=== PATIENT | male | born 1950 | race Caucasian/White ===

== ENCOUNTER → 2017-05-01 | Day surgery (SDC) | payer BC ==
[2017-04-16 08:41] VITALS: Ht 193 cm; Wt 81.8 kg
[~2017-05-01] VITALS: Ht 193 cm; Wt 81.8 kg
[~2017-05-01] MED LIST: CALC600T9 PO; IODI1TAB PO; LIDOCAINE HCL 2% 2 ML VIAL (20MG/ML) ONE; MAGN250T22 PO; MIDAZOLAM HCL 1 MG/ML 2ML VIAL ONE; ONDANSETRON INJ 2 MG/ML 2 ML VIAL ONE; POTA99TA PO; PROPOFOL IV EMULSION 10 MG/ML 20 ML VIAL IV ONE
--- NOTE | 2017-05-01 08:48 | Endo History and Physical ---
History & Physical Date of Service: May 01, 2017. Chief Complaint: screening Referring Physician: Dr. Jax Najera History of Present Illness 66 yo CM who presents for screening colonoscopy. Past Surgical History Hx Cardiac Surgery: No Hx Internal Defibrillator: No Hx Pacemaker: No Hx Abdominal Surgery: No Hx of Implantable Prosthesis: No Hx Post-Op Nausea and Vomiting: No Hx Cancer Surgery: No Hx Thoracic Surgery: No Hx Orthopedic: Yes (RT KNEE ARTHROSCOPY) Hx Urinary Tract Surgery: No Family History Polyp Social History Smoking Status: Never Smoker Hx Substance Use: No Hx Alcohol Use: Yes (3-4 DRINKS/WEEK) Allergies Coded Allergies: No Known Allergies (Verified , 05/01/17) Current Medications Reported Home Medications Medications Dose Route/Sig Max Daily Dose Days Date Category Magnesium (Magnesium Oxide) 250 Mg Tab 1 Tab PO DAILY 04/16/17 Reported Potassium 99 Mg Tab 1 Tab PO DAILY 04/16/17 Reported Kelp (Iodine (Kelp)) 150 Mcg Tab 1 Tab PO DAILY 04/16/17 Reported Calcium + D (Calcium Carbonate-Vitamin D) 1 Tab Tab 1 Tab PO DAILY 04/16/17 Reported Vital Signs Weight (Kilograms): 81.82 Height (Feet): 6 Height (Inches): 4 Date Time Temp Pulse Resp B/P (MAP) Pulse Ox O2 Delivery O2 Flow Rate FiO2 05/01/17 08:19 36.5 53 18 128/71 (90) 98 Room Air Physical Exam General Appearance: WD/WN, no apparent distress Respiratory/Chest: Auscultation: breath sounds normal Cardiovascular: Heart Auscultation: RRR Abdomen: Bowel Sounds: normal Inspection & Palpation: soft, non-distended, no tenderness, guarding & rebound Assessment and Plan Assessment: 66 yo CM who presents for screening colonoscopy. Plan: Proceed with colonoscopy.
--- NOTE | 2017-05-01 09:09 | Discharge Instructions ---
Endoscopy Patient Instructions Date / Procedure(s) Performed May 01, 2017. Colonoscopy Allergy Information Coded Allergies: No Known Allergies (Verified , 05/01/17) Discharge Date / Findings May 01, 2017. Internal hemorrhoids Medication Instructions OK to resume all medications today as prescribed Reported Home Medications Medications Dose Route/Sig Max Daily Dose Days Date Category Magnesium (Magnesium Oxide) 250 Mg Tab 1 Tab PO DAILY 04/16/17 Reported Potassium 99 Mg Tab 1 Tab PO DAILY 04/16/17 Reported Kelp (Iodine (Kelp)) 150 Mcg Tab 1 Tab PO DAILY 04/16/17 Reported Calcium + D (Calcium Carbonate-Vitamin D) 1 Tab Tab 1 Tab PO DAILY 04/16/17 Reported Provider Instructions Activity Restrictions - No exercising or heavy lifting for 24 hours. - Do not drink alcohol the day of the procedure. - Do not drive a car or operate machinery until the day after the procedure. - Do not make any important decisions or sign important papers in 24 hours after the procedure. Following Day: - Return to full activity which may include returning to work/school. Diet Start your diet with liquids and light foods (jello, soup, juice, toast). Then eat your usual diet if not nauseated. Treatment For Common After Affects For mild abdominal pain, bloating, or excessive gas: - Rest - Eat lightly - Lie on right side Follow-Up Information Follow-up with Dr. Jax Najera as scheduled Anesthesia Information What You Should Know You have had a procedure that required some medicine to reduce anxiety and discomfort. This treatment is called moderate sedation. After receiving the treatment, you may be sleepy, but you will be able to breathe on your own. The effects of the treatment may last for several hours. Follow these instructions along with Activity/Diet recommendations noted above: * Do NOT do anything where dizziness or clumsiness would be dangerous. * Rest quietly at home today, then you can be up and about tomorrow. * Have a responsible person stay with you the rest of today. * You may have had an I.V. today. If so, you may take the dressing off later today. Recommendations Call your doctor if: * Trouble breathing * Continuous vomiting for more than 24 hours * Temperature above 101 degrees * Severe abdominal pain or bloating * Pain not relieved by pain medicine ordered * There is increased drainage or redness from any incision * A large amount of rectal bleeding greater than 2-3 tablespoons. (If you had a polyp/s removed or have hemorrhoids, a small amount of blood - from the rectum is to be expected.) * You have any unanswered questions or concerns. IN THE EVENT OF A SERIOUS EMERGENCY, GO TO THE NEAREST EMERGENCY ROOM Your discharge instructions were prepared by provider Rodrigo Hutchison. Patient Instructions Signature Page Balbir Krause Patient (or Guardian) Signature/Date: I have read and understand the instructions given to me by my caregivers. Caregiver/RN/Doctor Signature/Date: The above-named patient and/or guardian has received patient instructions on this date. + Original Patient Signature Page (only) stays with chart. Please make copy for patient.
--- NOTE | 2017-05-01 09:19 | GI REPORT ---
Procedure Date: 05/01/2017 8:39 AM Procedure: Colonoscopy Indications: Screening for colorectal malignant neoplasm Medicines: Monitored Anesthesia Care Complications: No immediate complications. Estimated Blood Loss: Estimated blood loss: none. Procedure: Pre-Anesthesia Assessment: - Prior to the procedure, a History and Physical was performed, and patient medications and allergies were reviewed. The patient's tolerance of previous anesthesia was also reviewed. The risks and benefits of the procedure and the sedation options and risks were discussed with the patient. All questions were answered, and informed consent was obtained. Prior Anticoagulants: The patient has taken no previous anticoagulant or antiplatelet agents. ASA Grade Assessment: I - A normal, healthy patient. After reviewing the risks and benefits, the patient was deemed in satisfactory condition to undergo the procedure. After I obtained informed consent, the scope was passed under direct vision. Throughout the procedure, the patient's blood pressure, pulse, and oxygen saturations were monitored continuously. The Scope was introduced through the anus and advanced to the terminal ileum. The colonoscopy was performed without difficulty. The patient tolerated the procedure well. The quality of the bowel preparation was good. The terminal ileum, ileocecal valve, appendiceal orifice, and rectum were photographed. Findings: The perianal and digital rectal examinations were normal. Non-bleeding internal hemorrhoids were found during retroflexion. The hemorrhoids were small. The exam was otherwise without abnormality. Impression: - Non-bleeding internal hemorrhoids. - The examination was otherwise normal. - No specimens collected. Recommendation: - Resume previous diet. - Continue present medications. - Repeat colonoscopy in 10 years for surveillance. - Return to primary care physician as previously scheduled. Rodrigo Hutchison, 05/01/2017 9:18:51 AM This report has been signed electronically. Note Initiated On: 05/01/2017 8:39 AM I attest to the content of the Intraoperative Record and orders documented therein, exceptions below
[2017-05-01 10:15] VITALS: BP 117/78; PULSE 54; O2SAT 96
--- NOTE | 2017-05-01 10:48 | Anesthesiology Progress Note ---
Anesthesia Post Op Note Date & Time May 01, 2017 at 10:48 Vital Signs Pain Intensity: 0 Vital Signs Past 12 Hours Date Time Temp Pulse Resp B/P (MAP) Pulse Ox O2 Delivery O2 Flow Rate FiO2 05/01/17 10:15 54 18 117/78 (91) 96 Room Air 05/01/17 09:50 47 18 114/71 (85) 100 Room Air 05/01/17 09:35 52 18 100/57 (71) 98 Room Air 05/01/17 09:20 52 16 83/55 (64) 100 Room Air 05/01/17 09:10 52 16 94/55 (68) 100 Room Air 05/01/17 08:19 36.5 53 18 128/71 (90) 98 Room Air Notes Mental Status: alert / awake / arousable, participated in evaluation Pt Amnestic to Procedure: Yes Nausea / Vomiting: adequately controlled Pain: adequately controlled Airway Patency, RR, SpO2: stable & adequate BP & HR: stable & adequate Hydration State: stable & adequate Anesthetic Complications: no major complications apparent
== END | disposition home or self-care (01) ==
LOC: C.GI 07:54
PROVIDERS: ATTEND Internal Medicine
DX: Z12.11 Encounter for screening for malignant neoplasm of colon (principal); K64.8 Other hemorrhoids; Z83.71 Family history of colonic polyps; Z98.890 Other specified postprocedural states; Z90.89 Acquired absence of other organs

== ENCOUNTER 2021-12-06 21:43 | Inpatient (IN) ==
[2021-12-06 22:19] LABS: Basophils # (auto) 0.06 K/uL (0-0.2); Basophils % (auto) 0.7 %; Eosinophils # (auto) 0.11 K/uL (0-0.50); Eosinophils % (auto) 1.4 %; Hematocrit (blood only) 42.1 % (40.1-51.0); Hemoglobin 14.4 g/dl (14.0-18.0); Immature Granulocytes # (auto) 0.02 K/uL (0.00-0.02); Immature Granulocytes % (auto) 0.2 %; Lymphocytes % (auto) 38.2 %; Mean Corpuscular Hemoglobin 31.1 pg (25.0-34.0); Mean Corpuscular Hgb Conc 34.2 g/dL (32.0-36.0); Mean Corpuscular Volume 90.9 fL (80.0-100.0); Mean Platelet Volume 9.9 fL (9.4-12.4); Monocytes # (auto) 0.79 K/uL (0.24-0.82); Monocytes % (auto) 9.7 %; Neutrophils # (auto) 4.04 K/uL (1.4-6.5); Neutrophils % (auto) 49.8 %; Platelet Count 218 K/uL (130-400); RDW Coefficient of Variation 12.6 % (11.5-14.5); RDW Standard Deviation 41.8 fL (36.4-46.3); Red Blood Count 4.63 M/uL (4.63-6.08); White Blood Count 8.12 K/ul (4.8-10.8)
[2021-12-06 22:43] LABS: Albumin Globulin Ratio 1.6 (0.9-2); Albumin Level 3.9 gm/dl (3.4-5.0); BUN Creatinine Ratio 28.8 (10-20); Bilirubin,Total 1.1 mg/dl (0.2-1.0); Est GFR (African American) 77.6 ml/min; Est GFR (Non-African American) 66.9 ml/min; Globulin 2.5 gm/dl (2.5-4.0); Potassium 3.8 mmol/L (3.5-5.1); Total Protein 6.4 gm/dl (6.0-8.3)
[2021-12-06 22:47] LABS: Troponin I High Sensitivity 26.9 pg/ml (0-20)
--- NOTE | 2021-12-06 22:47 | XRay Report ---
XR chest 1V portable CLINICAL HISTORY: Chest Pain TECHNIQUE: Single frontal radiograph of the chest was obtained. Comparison: None available at the time of this dictation. FINDINGS: No lines and tubes are seen. The cardiomediastinal silhouette is normal. The lungs are clear. No evid ence of pleural effusion or pneumothorax. IMPRESSION: No acute chest disease. ACT 112: Negative or not required by law. Electronically signed by: Cameron Hyman M.D. 12/06/2021 10:44 PM
[2021-12-06] MEDS ORDERED: ASPIRIN CHEW 324 MG PO STA (23:04)
--- NOTE | 2021-12-06 23:08 | Emergency Department Note ---
History of Present Illness General Chief complaint: Tachycardia Stated complaint: ELEVATED HEART RATE Time Seen by Provider: 12/06/21 22:49 History of Present Illness 71-year-old male presents emergency department states palpitations that started earlier today when he was golfing. Patient states he felt slightly dizzy felt like he was dehydrated. Patient does admit to alcohol in the past few days. Patient denies nausea vomiting diarrhea. Patient denies chest pain or shortness of breath. Patient has no significant medical history. There are no other mitigating or alleviating factors Home Medications Medication Instructions Recorded Confirmed Type calcium carbonate 500 mg calcium 500 mg PO DAILY tab 03/22/19 12/06/21 History (1,250 mg) tablet cholecalciferol (vitamin D3) 50 2,000 units PO DAILY #90 tab 03/22/19 12/06/21 History mcg (2,000 unit) tablet magnesium oxide 400 mg (241.3 mg 400 mg PO DAILY #30 tab 03/22/19 12/06/21 History magnesium) tablet potassium gluconate 595 mg (99 mg) 595 mg PO DAILY 03/06/20 12/06/21 History tablet [id number] 5 mg-zeaxanth 1 cap PO DAILY 12/06/21 12/06/21 History 1 mg-bilberry 7.5 mg-herbal capsule ([employer] Health Formula) Allergies Allergy/AdvReac Type Severity Reaction Status Date / Time No Known Drug Allergies Allergy Unknown Verified 12/06/21 22:41 Past Med/Surg History Medical History (Updated 12/06/21 @ 23:08 by Baljinder Hnederson DO) Enlarged prostate without lower urinary tract symptoms (luts) Gilbert's syndrome Internal hemorrhoids Surgical History H/O arthroscopy of right knee H/O colonoscopy Hx of tonsillectomy Family History Father Diabetes Hypertension Myocardial infarction Brother Diabetes Denies family history of Colon cancer Ovarian cancer Prostate cancer Breast cancer Social History Smoking Status: Never smoker Second Hand Exposure: No; Hx Alcohol Use: Yes (1 drink daily ) Hx Substance Use: No Preferred Language: Welsh Visual Impairment: No Limitations Hearing Ability: Use of Hearing Aid Beliefs That Will Affect Care: None marital status: Current Living Situation: Spouse current occupational status: retired 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 Feels Safe at Home: Yes Childhood Exposure to Second-Hand Smoke: Yes Dental Care, Regularly: Yes Physical Activity Frequency: Daily Seatbelt Use: always Sunscreen Use: Yes Review of Systems A total of 10 systems reviewed and were otherwise negative Constitutional: no fever Respiratory: no cough Cardiovascular: + palpitations; no chest pain Gastrointestinal: no abdominal pain Physical Exam Vital Signs Vital Signs - 24 hr 12/06/21 21:47 12/06/21 22:12 12/06/21 22:13 Temperature 36.7 C Temperature Source Temporal Artery Scan Pulse Rate 132 H Pulse Rate [Apical] 127 H Pulse Rhythm Regular Pulse Rhythm [Apical] Regular Pulse Strength Normal Respiratory Rate 16 16 Respiratory Effort / Characteristics Non-Labored Non-Labored Respiratory Depth Normal Normal Respiratory Pattern Regular Blood Pressure 131/85 Blood Pressure [Right Arm] 128/102 H Blood Pressure Mean 100 Blood Pressure Mean [Right Arm] 110 Blood Pressure Position Sitting Pulse Oximetry 97 97 96 Oxygen Delivery Method Room Air Room Air Room Air Sepsis Recent Fever Within 48 Hours No Sepsis New/Unexplained Change in Mental Status N/A Sepsis Action Taken by Nursing No Action Required VITAL SIGNS - Vital signs and nursing notes were reviewed. GENERAL -No acute distress. Communicates well with provider and answers questions appropriately. SKIN - Without rashes. HEAD - NC/AT. EYES - PERRL with EOMI bilaterally. Sclera anicteric. Palpebral conjunctiva pink and moist with no injection noted. EARS - No deformities of external structures noted on gross examination bilaterally. NOSE - Midline and without cyanosis. No epistaxis or purulent drainage noted. Septum midline without deviation or septal hematoma noted. MOUTH/OROPHARYNX - Without perioral cyanosis. NECK - Neck with FROM. Supple to palpation. LUNGS - Chest wall symmetric without accessory muscle use, intercostals retractions, or central cyanosis. Normal vesicular breath sounds CTA B/L. No wheezes, rales, or rhonchi appreciated. CARDIAC -irregularly irregular with S1/S2. No murmur, rubs, or gallops appreciated. ABDOMEN - Abdominal contour soft without pulsations or visible masses. BS normoactive all four quadrants. No tenderness, palpable masses, hepatosplenomegaly, or ascites noted. EXTREMITIES - No clubbing or peripheral cyanosis. No pretibial edema present. +5/5 strength noted in UE/LE bilaterally. NEUROLOGIC - Cranial nerves II through XII grossly intact. PSYCH - A&Ox3 and cooperates fully with examiner. Pt is very pleasant and interacts well with examiner. Course Administered Medications Discontinued Medications Aspirin (Aspirin Chew 324 Mg) 324 mg PO NOW STA Stop: 12/06/21 23:05 Last Admin: 12/06/21 23:14 Dose: 324 mg Documented by: [id number] Critical Care Time Critical Care Time: Yes Total Critical Care Time: 35 I have personally spent greater than 35 minutes of critical care time in the direct management of this patient. This includes bedside care, interpretation of diagnostic studies, and testing, discussion with consultants, patient, and family members, and other required patient management activities. These minutes are in excess of all separately billable procedures. Medical Decision Making Home Medications Current Medication List: was personally reviewed by me Laboratory Data Attestation: I reviewed the patient's lab results. Result diagrams: 12/06/21 22:00 12/06/21 22:00 Lab Results 12/06/21 12/06/21 12/06/21 Range/Units 22:00 22:00 22:00 WBC 8.12 (4.8-10.8) K/ul RBC 4.63 (4.63-6.08) M/uL Hgb 14.4 (14.0-18.0) g/dl Hct 42.1 (40.1-51.0) % MCV 90.9 (80.0-100.0) fL MCH 31.1 (25.0-34.0) pg MCHC 34.2 (32.0-36.0) g/dL RDW Std Deviation 41.8 (36.4-46.3) fL RDW Coeff of Rachel 12.6 (11.5-14.5) % Plt Count 218 (130-400) K/uL MPV 9.9 (9.4-12.4) fL Immature Gran % (Auto) 0.2 % Neut % (Auto) 49.8 % Lymph % (Auto) 38.2 % [place] % (Auto) 9.7 % Eos % (Auto) 1.4 % Baso % (Auto) 0.7 % Neut # (Auto) 4.04 (1.4-6.5) K/uL Lymph # (Auto) 3.10 (1.2-3.4) K/uL [place] # (Auto) 0.79 (0.24-0.82) K/uL Eos # (Auto) 0.11 (0-0.50) K/uL Baso # (Auto) 0.06 (0-0.2) K/uL Immature Gran # (Auto) 0.02 (0.00-0.02) K/uL PT 10.6 (9.0-12.0) Seconds INR 1.0 (0.9-1.1) APTT 27.5 (21.0-31.0) Seconds PTT Ratio 1.0 Sodium 137 (136-145) mmol/L Potassium 3.8 (3.5-5.1) mmol/L Chloride 106 (98-107) mmol/L Carbon Dioxide 26 (21-32) mmol/L Anion Gap 5 (3-11) BUN 32 H (6-23) mg/dl Creatinine 1.11 (0.6-1.4) mg/dl Est Cr Clr Drug Dosing 74.0 ml/min Est GFR ( Amer) 77.6 ml/min Est GFR (Non-Af Amer) 66.9 ml/min BUN/Creatinine Ratio 28.8 H (10-20) Glucose 110 H (70-99(Fasting)) mg/dl Calcium 9.0 (8.5-10.1) mg/dl Magnesium (1.7-2.4) mg/dl Total Bilirubin 1.1 H (0.2-1.0) mg/dl AST 33 (13-39) U/L ALT 28 (7-52) U/L Alkaline Phosphatase 55 (34-104) U/L Troponin I High Sens 26.9 H (0-20) pg/ml Total Protein 6.4 (6.0-8.3) gm/dl Albumin 3.9 (3.4-5.0) gm/dl Globulin 2.5 (2.5-4.0) gm/dl Albumin/Globulin Ratio 1.6 (0.9-2) SARS-CoV-2, RNA, NAAT (NEGATIVE) 12/06/21 12/06/21 Range/Units 22:00 23:12 WBC (4.8-10.8) K/ul RBC (4.63-6.08) M/uL Hgb (14.0-18.0) g/dl Hct (40.1-51.0) % MCV (80.0-100.0) fL MCH (25.0-34.0) pg MCHC (32.0-36.0) g/dL RDW Std Deviation (36.4-46.3) fL RDW Coeff of Rachel (11.5-14.5) % Plt Count (130-400) K/uL MPV (9.4-12.4) fL Immature Gran % (Auto) % Neut % (Auto) % Lymph % (Auto) % [place] % (Auto) % Eos % (Auto) % Baso % (Auto) % Neut # (Auto) (1.4-6.5) K/uL Lymph # (Auto) (1.2-3.4) K/uL [place] # (Auto) (0.24-0.82) K/uL Eos # (Auto) (0-0.50) K/uL Baso # (Auto) (0-0.2) K/uL Immature Gran # (Auto) (0.00-0.02) K/uL PT (9.0-12.0) Seconds INR (0.9-1.1) APTT (21.0-31.0) Seconds PTT Ratio Sodium (136-145) mmol/L Potassium (3.5-5.1) mmol/L Chloride (98-107) mmol/L Carbon Dioxide (21-32) mmol/L Anion Gap (3-11) BUN (6-23) mg/dl Creatinine (0.6-1.4) mg/dl Est Cr Clr Drug Dosing ml/min Est GFR ( Amer) ml/min Est GFR (Non-Af Amer) ml/min BUN/Creatinine Ratio (10-20) Glucose (70-99(Fasting)) mg/dl Calcium (8.5-10.1) mg/dl Magnesium 2.0 (1.7-2.4) mg/dl Total Bilirubin (0.2-1.0) mg/dl AST (13-39) U/L ALT (7-52) U/L Alkaline Phosphatase (34-104) U/L Troponin I High Sens (0-20) pg/ml Total Protein (6.0-8.3) gm/dl Albumin (3.4-5.0) gm/dl Globulin (2.5-4.0) gm/dl Albumin/Globulin Ratio (0.9-2) SARS-CoV-2, RNA, NAAT NEGATIVE (NEGATIVE) Imaging Data Radiologist's Impression: Chest X-Ray 12/06/21 22:06 XR chest 1V portable CLINICAL HISTORY: Chest Pain TECHNIQUE: Single frontal radiograph of the chest was obtained. Comparison: None available at the time of this dictation. FINDINGS: No lines and tubes are seen. The cardiomediastinal silhouette is normal. The lungs are clear. No evidence of pleural effusion or pneumothorax. IMPRESSION: No acute chest disease. ACT 112: Negative or not required by law. Electronically signed by: Cameron Hyman M.D. 12/06/2021 10:44 PM ECG Data Attestation: I personally reviewed and interpreted this ECG as follows: Additional Comments: EG interpreted by me atrial flutter rate of 107 variable AV block no obvious ST segment elevation or depression normal axis right bundle branch block. MDM Narrative Medical decision making differential diagnosis cardiac dysrhythmia, atrial fibrillation, atrial flutter, acute coronary syndrome, acute OH. Acute electrolyte abnormality. Check labs we will check cardiac evaluation Impression & Plan Atrial flutter Discharge Plan Visit Data Chief Complaint: Tachycardia Stated Complaint: ELEVATED HEART RATE ED Provider: Baljinder Henderson Discharge Problem: Atrial flutter Patient Disposition: Being Evaluated by Hospitalist Forms Stand Alone Forms: My [facility] Prescriptions Prescriptions: No Action calcium carbonate 500 mg calcium (1,250 mg) tablet 500 mg PO DAILY RF: 0 cholecalciferol (vitamin D3) 2,000 unit tablet 2,000 units PO DAILY Qty: 90 RF: 0 magnesium oxide 400 mg (241.3 mg magnesium) tablet 400 mg PO DAILY Qty: 30 RF: 0 potassium gluconate 595 mg (99 mg) tablet 595 mg PO DAILY RF: 0 Macular Health Formula 5-1-7.5 mg Capsule 1 cap PO DAILY RF: 0 Referrals Referrals: Jax Najera MD [Primary Care Provider] - Discharge Problem: Atrial flutter Qualifiers: Atrial flutter type: typical Qualified Code(s): I48.3 - Typical atrial flutter
[2021-12-06 23:30] LABS: Partial Thromboplastin Time 27.5 Seconds (21.0-31.0); Prothrombin Time 10.6 Seconds (9.0-12.0)
--- NOTE | 2021-12-06 23:55 | History & Physical Report ---
Date of Service December 06, 2021 Assessment & Plan (1) Atrial flutter: Plan: Mr. Shields is a 71 yo male with PMHx of OA and HLD who presented to the ER with acute onset of tachycardia/palpitations, admitted for new onset atrial flutter. Atrial flutter - CXR 12/06 w/o acute processes - EKG qAM - TTE ordered - Start ASA 325mg qAM - mIVF at 125 cc/hr - Cardiology consult - Trend troponin to peak; mildly elevated at 26.9 on admission - Will keep NPO pending possible cardiology interventions - Recheck CBC, BMP, and mag in AM - Goal of K > 4 and mag > 2 Hyperlipidemia - Hx of HLD that is controlled with diet - Last lipid profile 01/19 - Repeat lipid profile in AM FENGI: NPO; IVF with NSS at 125 cc/hr Code status personally discussed with patient on admission. Patient is FULL CODE. Dispo: admit to PCU (2) Hyperlipidemia: History of Present Illness Primary Care Provider: Jax Najera MD Patient is a 71 yo male presenting to the ED today with an acute onset of tachycardia/palpitations. Patient is very active at baseline; he golfs 18 holes daily, walking the course, and rides his bicycle (trailing the clubs) about 3 miles roundtrip between the house and course. This afternoon, patient was on hole 17 when he had an acute onset of tachycardia/palpitations. He thought that it was associated with dehydration so he drank some water. Patient was able to complete the game. He was also able to complete another 9-hole game with his later in the evening. Afterwards, symptoms persisted so he presented to the ED for evaluation. Patient denies hx of similar episodes. He denies CP, SOB, YOUNG, lightheadedness, dizziness, or any other symptoms. Patient states that he has been at his baseline health w/o recent illness. He has had normal po intake and no recent decreased appetite. Allergies Allergy/AdvReac Type Severity Reaction Status Date / Time No Known Drug Allergies Allergy Unknown Verified 12/06/21 22:41 Home Medications Medication Instructions Recorded Confirmed Type calcium carbonate 500 mg calcium 500 mg PO DAILY tab 03/22/19 12/06/21 History (1,250 mg) tablet cholecalciferol (vitamin D3) 50 2,000 units PO DAILY #90 tab 03/22/19 12/06/21 History mcg (2,000 unit) tablet magnesium oxide 400 mg (241.3 mg 400 mg PO DAILY #30 tab 03/22/19 12/06/21 History magnesium) tablet potassium gluconate 595 mg (99 mg) 595 mg PO DAILY 03/06/20 12/06/21 History tablet ogfqxjdu-dlc-owcson 5 mg-zeaxanth 1 cap PO DAILY 12/06/21 12/06/21 History 1 mg-bilberry 7.5 mg-herbal capsule ([employer] Formula) rivaroxaban 20 mg tablet (Xarelto) 20 mg PO DAILY #30 tab 12/07/21 Rx Past Med/Surg History Medical History (Updated 12/07/21 @ 09:28 by Rolly Becker MD) Enlarged prostate without lower urinary tract symptoms (luts) Gilbert's syndrome Internal hemorrhoids Surgical History H/O arthroscopy of right knee H/O colonoscopy Hx of tonsillectomy Family History Father Diabetes Hypertension Myocardial infarction Brother Diabetes Denies family history of Colon cancer Ovarian cancer Prostate cancer Breast cancer Social History Smoking Status: Never smoker Second Hand Exposure: No; Hx Alcohol Use: Yes Alcohol type: beer Hx Substance Use: No Preferred Language: Russian Communication Ability: Effective Visual Impairment: No Limitations Hearing Ability: Use of Hearing Aid Photograph Enlarger Required: No Beliefs That Will Affect Care: None marital status: Current Living Situation: Spouse current occupational status: retired 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 Well developed and well nourished. Vital signs reviewed as above. EYES: EOMI. Anicteric sclerae. HENT: Moist mucous membranes. RESPIRATORY: Clear to auscultation bilaterally. No wheezing, rales, or rhonchi. CARDIOVASCULAR: Regular rate. Irregularly irregular rhythm. No murmurs. No JVD. ABDOMEN: Soft, non-tender and non-distended. Normal bowel sounds. SKIN: Warm, dry. NEUROLOGIC: A/O x3. Normal speech. No focal neurological deficits. PSYCHIATRIC: Cooperative. Appropriate mood and affect. Results & Data Results & Data ([facility]) Vital Signs (Past 12 Hours) Vital Signs Temp Pulse Pulse Resp BP BP Pulse Ox 12/06/21 22:13 127 H 16 128/102 H 96 12/06/21 22:12 97 12/06/21 21:47 36.7 C 132 H 16 131/85 97 Laboratory Results 12/06/21 12/06/21 12/06/21 Range/Units 23:12 22:00 22:00 WBC (4.8-10.8) K/ul RBC (4.63-6.08) M/uL Hgb (14.0-18.0) g/dl Hct (40.1-51.0) % MCV (80.0-100.0) fL MCH (25.0-34.0) pg MCHC (32.0-36.0) g/dL RDW Std Deviation (36.4-46.3) fL RDW Coeff of Rachel (11.5-14.5) % Plt Count (130-400) K/uL MPV (9.4-12.4) fL Immature Gran % (Auto) % Neut % (Auto) % Lymph % (Auto) % [place] % (Auto) % Eos % (Auto) % Baso % (Auto) % Neut # (Auto) (1.4-6.5) K/uL Lymph # (Auto) (1.2-3.4) K/uL [place] # (Auto) (0.24-0.82) K/uL Eos # (Auto) (0-0.50) K/uL Baso # (Auto) (0-0.2) K/uL Immature Gran # (Auto) (0.00-0.02) K/uL PT (9.0-12.0) Seconds INR (0.9-1.1) APTT (21.0-31.0) Seconds PTT Ratio Sodium 137 (136-145) mmol/L Potassium 3.8 (3.5-5.1) mmol/L Chloride 106 (98-107) mmol/L Carbon Dioxide 26 (21-32) mmol/L Anion Gap 5 (3-11) BUN 32 H (6-23) mg/dl Creatinine 1.11 (0.6-1.4) mg/dl Est Cr Clr Drug Dosing 74.0 ml/min Est GFR ( Amer) 77.6 ml/min Est GFR (Non-Af Amer) 66.9 ml/min BUN/Creatinine Ratio 28.8 H (10-20) Glucose 110 H (70-99(Fasting)) mg/dl Calcium 9.0 (8.5-10.1) mg/dl Magnesium 2.0 (1.7-2.4) mg/dl Total Bilirubin 1.1 H (0.2-1.0) mg/dl AST 33 (13-39) U/L ALT 28 (7-52) U/L Alkaline Phosphatase 55 (34-104) U/L Troponin I High Sens 26.9 H (0-20) pg/ml Total Protein 6.4 (6.0-8.3) gm/dl Albumin 3.9 (3.4-5.0) gm/dl Globulin 2.5 (2.5-4.0) gm/dl Albumin/Globulin Ratio 1.6 (0.9-2) SARS-CoV-2, RNA, NAAT NEGATIVE (NEGATIVE) 12/06/21 12/06/21 Range/Units 22:00 22:00 WBC 8.12 (4.8-10.8) K/ul RBC 4.63 (4.63-6.08) M/uL Hgb 14.4 (14.0-18.0) g/dl Hct 42.1 (40.1-51.0) % MCV 90.9 (80.0-100.0) fL MCH 31.1 (25.0-34.0) pg MCHC 34.2 (32.0-36.0) g/dL RDW Std Deviation 41.8 (36.4-46.3) fL RDW Coeff of Rachel 12.6 (11.5-14.5) % Plt Count 218 (130-400) K/uL MPV 9.9 (9.4-12.4) fL Immature Gran % (Auto) 0.2 % Neut % (Auto) 49.8 % Lymph % (Auto) 38.2 % [place] % (Auto) 9.7 % Eos % (Auto) 1.4 % Baso % (Auto) 0.7 % Neut # (Auto) 4.04 (1.4-6.5) K/uL Lymph # (Auto) 3.10 (1.2-3.4) K/uL [place] # (Auto) 0.79 (0.24-0.82) K/uL Eos # (Auto) 0.11 (0-0.50) K/uL Baso # (Auto) 0.06 (0-0.2) K/uL Immature Gran # (Auto) 0.02 (0.00-0.02) K/uL PT 10.6 (9.0-12.0) Seconds INR 1.0 (0.9-1.1) APTT 27.5 (21.0-31.0) Seconds PTT Ratio 1.0 Sodium (136-145) mmol/L Potassium (3.5-5.1) mmol/L Chloride (98-107) mmol/L Carbon Dioxide (21-32) mmol/L Anion Gap (3-11) BUN (6-23) mg/dl Creatinine (0.6-1.4) mg/dl Est Cr Clr Drug Dosing ml/min Est GFR ( Amer) ml/min Est GFR (Non-Af Amer) ml/min BUN/Creatinine Ratio (10-20) Glucose (70-99(Fasting)) mg/dl Calcium (8.5-10.1) mg/dl Magnesium (1.7-2.4) mg/dl Total Bilirubin (0.2-1.0) mg/dl AST (13-39) U/L ALT (7-52) U/L Alkaline Phosphatase (34-104) U/L Troponin I High Sens (0-20) pg/ml Total Protein (6.0-8.3) gm/dl Albumin (3.4-5.0) gm/dl Globulin (2.5-4.0) gm/dl Albumin/Globulin Ratio (0.9-2) SARS-CoV-2, RNA, NAAT (NEGATIVE) Diagnostic Findings [facility], [place] [phone] XRay Report Patient:ZI SHIELDS Admit Date:12/06/21 MR#:[id number] Address1:[address] Acct ID:[id number] Address2: Date:1950 [facility] Zip:[place] [address] Age:71 Location:ED Sex:M Room/Bed: Att Phy: Diagnosis:ELEVATED HEART RATE Emily Phy:Jax Najera MD Service Date:12/06/21 [facility] Phy: Interpreting Phy:Cameron Hyman MDAdmit Phy: Ordering Phy:TEMP,ED cc: ~ XR chest 1V portable CLINICAL HISTORY: Chest Pain TECHNIQUE: Single frontal radiograph of the chest was obtained. Comparison: None available at the time of this dictation. FINDINGS: No lines and tubes are seen. The cardiomediastinal silhouette is normal. The lungs are clear. No evidence of pleural effusion or pneumothorax. IMPRESSION: No acute chest disease. ACT 112: Negative or not required by law. Electronically signed by: Cameron Hyman M.D. 12/06/2021 10:44 PM Dictated:12/06/[id number] Transcribed: 12/06/212239 Supervising Physician Co-Signing Physician Notes Attending addendum: I have physically seen this patient, have supervised the medical residents activities, and agree with the H&P unless as otherwise noted. Assessment and Plan: Atrial flutter with variable block- Telemetry admission Aspirin 325 mg every morning NSS@125 mils per hour Consult cardiology Long-term anticoagulation determined per cardiology Remaining orders and notations as noted Resident Activity Tracking Resident Involvement: Resident Care Provided Care Provided: Adult Hospital Medicine (1) Atrial flutter Atrial flutter type: typical Qualified Code(s): I48.3 - Typical atrial flutter
[2021-12-07] MEDS ORDERED: ACETAMINOPHEN 325 MG TAB PO PRN (02:36)
[2021-12-07] MEDS ORDERED: SODIUM CHLORIDE 0.9% 1000ML 1,000 ML IV SCH (02:36)
[2021-12-07] MEDS ORDERED: POLYETHYLENE (MIRALAX) 17 GM PACK PO PRN (02:36)
[2021-12-07] MEDS ORDERED: ONDANSETRON INJ 2 MG/ML 2 ML VIAL IV PRN (02:36)
[2021-12-07] MEDS: POTASSIUM CHLORIDE CRTAB 20 MEQ TABCR PO STA ×2 (02:40→04:20)
[2021-12-07] MEDS: POTASSIUM CHLORIDE / WTR 10 MEQ/100 ML PLCT IV SCH ×2 (04:50→06:23)
[2021-12-07] MEDS ORDERED: ASPIRIN 325 MG ECTAB PO SCH (09:00)
[2021-12-07] MEDS ORDERED: NON-FORMULARY MEDICATION (Potassium Gluconate 595 mg (99 mg) tablet) PO SCH (09:00)
[2021-12-07] MEDS ORDERED: MAGNESIUM OXIDE 400 MG TAB PO SCH (09:00)
[2021-12-07] MEDS ORDERED: CHOLECALCIFEROL 1,000 UNITS 25 MCG TAB PO SCH (09:00)
[2021-12-07] MEDS ORDERED: CEROVITE ADV FORMULA TAB PO SCH (09:00)
[2021-12-07] MEDS ORDERED: CALCIUM CARBONATE 1250MG TAB PO SCH (09:00)
[2021-12-07 09:03] LABS: Hematocrit (blood only) 43.7 % (40.1-51.0); Hemoglobin 14.5 g/dl (14.0-18.0); Mean Corpuscular Hemoglobin 30.4 pg (25.0-34.0); Mean Corpuscular Hgb Conc 33.2 g/dL (32.0-36.0); Mean Corpuscular Volume 91.6 fL (80.0-100.0); Mean Platelet Volume 9.8 fL (9.4-12.4); Platelet Count 197 K/uL (130-400); RDW Coefficient of Variation 12.9 % (11.5-14.5); RDW Standard Deviation 43.7 fL (36.4-46.3); Red Blood Count 4.77 M/uL (4.63-6.08); White Blood Count 5.32 K/ul (4.8-10.8)
--- NOTE | 2021-12-07 09:23 | Cardiology Consultation ---
Date of Consultation December 07, 2021 Assessment & Plan (1) Atrial fibrillation: (2) Elevated troponin: 1. Atrial fibrillation: His initial EKG was consistent with an atrial flutter. At some point he transitioned to atrial fibrillation. Rate control is slightly better at rest with atrial fibrillation. With ambulation he still has some higher rates. Curiously, he is not symptomatic from the arrhythmia or high rates. I think we can reliably state that this started yesterday. He noticed a change in his heart rhythm and had a change in his heart rate fairly abruptly yesterday afternoon. We discussed options for treatment. One option is simply waiting for him to convert spontaneously. The fact that this is the 1st known episode of atrial fibrillation and he appears otherwise healthy suggest that he will return to sinus rhythm on his own likely in short order. I did offer him the option of cardioversion. Unfortunately, do not have anesthesia support on the weekends to perform electrical cardioversion, but he would be a good cheryl date for oral flecainide. This has limited efficacy but could return him to a sinus rhythm. He preferred to avoid any particular medical therapy and would simply prefer to see if he converts spontaneously. I think with his absence of symptoms he could reliably be discharged with instructions to avoid very strenuous activity. He could follow up with us on Thursday with an EKG in the office. At that point we could either make arrangements for electrical cardioversion or simply discuss chronic management. His chads Vasc score is 1 for age. This puts him at a very low risk for stroke. We discussed the relative merits of anticoagulation in the attendant risks. I did recommend starting anticoagulation currently as this would allow us to perform cardioversion in a more timely fashion if he does not convert on his own. He has not made a decision regarding long-term anticoagulation. I think he would be a good candidate for Xarelto 20 mg daily. Eliquis 5 mg twice daily would be an acceptable alternative. 2. Elevated troponin: Very mild elevation in the high sensitivity troponin. Trajectory is not indicative of a recent acute coronary syndrome. He had no symptoms of chest discomfort and otherwise appears to be healthy individual. I suspect this may be elevated due to the development of atrial fibrillation in some high ventricular rates in the association of activity yesterday. I do not believe he requires further risk stratification or an ischemic evaluation at this point. History of Present Illness Reason for Consultation: Atrial fibrillation Requesting Physician: Mane Attending Physician: Lj Jean MD History of Present Illness The patient is a 71-year-old gentleman without a history of cardiac disease who noticed an elevated heart rate yesterday. The patient is an active individual who golfs regularly. He also rides a bike regularly. He is accustomed to routine activity without symptoms. Yesterday he noticed a sensation of an elevated heart rate which was confirmed by readings on his Apple watch. The patient had no associated symptoms. He did not feel short of breath. There was no dizziness or chest discomfort. He continued his usual daily activities but later in the evening due to a persistently elevated heart rate he went to the emergency room for evaluation. He was initially felt to have atrial flutter but subsequent EKGs were more consistent with atrial fibrillation. He had associated high ventricular rates. He was admitted for observation. He underwent some hydration and electrolyte replenishment. The patient states that he has only had very brief and transient palpitations in the past. These are very infrequent occurring perhaps once per year. He states that 20 years ago he underwent a stress test for insurance physical. He generally has heart rates in the 50s to 60s and has not noticed any elevated heart rates until yesterday. This morning he is feeling well. He is aware of some irregularity in his heart rate but does not feel like the heart rate is elevated. He has been back and forth around his hospital room without symptoms. Allergies Allergy/AdvReac Type Severity Reaction Status Date / Time No Known Drug Allergies Allergy Unknown Verified 12/06/21 22:41 Home Medications Medication Instructions Recorded Confirmed Type calcium carbonate 500 mg calcium 500 mg PO DAILY tab 03/22/19 12/06/21 History (1,250 mg) tablet cholecalciferol (vitamin D3) 50 2,000 units PO DAILY #90 tab 03/22/19 12/06/21 History mcg (2,000 unit) tablet magnesium oxide 400 mg (241.3 mg 400 mg PO DAILY #30 tab 03/22/19 12/06/21 History magnesium) tablet potassium gluconate 595 mg (99 mg) 595 mg PO DAILY 03/06/20 12/06/21 History tablet aaexhiiy-qmf-fitwjg 5 mg-zeaxanth 1 cap PO DAILY 12/06/21 12/06/21 History 1 mg-bilberry 7.5 mg-herbal capsule ([employer] Formula) Patient History Medical History (Updated 12/07/21 @ 09:28 by Rolly Becker MD) Enlarged prostate without lower urinary tract symptoms (luts) Gilbert's syndrome Internal hemorrhoids Surgical History H/O arthroscopy of right knee H/O colonoscopy Hx of tonsillectomy Family History Father Diabetes Hypertension Myocardial infarction Brother Diabetes Denies family history of Colon cancer Ovarian cancer Prostate cancer Breast cancer Social History Smoking Status: Never smoker Second Hand Exposure: No; Hx Alcohol Use: Yes Alcohol type: beer Hx Substance Use: No Preferred Language: Turkmen Communication Ability: Effective Visual Impairment: No Limitations Hearing Ability: Use of Hearing Aid [employer] Tech Required: No Beliefs That Will Affect Care: None marital status: Current Living Situation: Spouse current occupational status: retired 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 No difficulty sleeping. One nap in the afternoon which is a longstanding habit. No snoring by report. Physical Exam Physical Exam: The patient is alert and oriented. Mood and affect appeared normal. He answered all questions appropriately. HEENT: Pupils are equal and reactive to light and accommodation. Extraocular movements are intact. The sclerae are anicteric. Neuro: Cranial nerves intact Lungs: Clear to auscultation bilaterally. He has good air movement without use of accessory muscles. No rales wheezes or rhonchi. Cardiac: Heart demonstrates an irregular rhythm but normal rate Normal S1 and S2. No murmurs on examination. Pulses: The patient has palpable radial pulses bilaterally that are equal in intensity Extremities: There was no evidence of hypoperfusion. There is no cyanosis or clubbing. There is no edema. Skin: I did not appreciate any rashes on examination today. Results & Data ([facility]) Vital Signs (Past 12 Hours) Vital Signs Temp Pulse Pulse Resp BP BP Pulse Ox 12/07/21 09:11 92 H 07/09/22 07:52 36.5 C 82 16 128/87 99 12/07/21 02:36 12/07/21 02:25 68 12/07/21 02:13 36.4 C L 79 18 118/78 97 12/07/21 01:30 75 14 108/75 97 12/07/21 01:00 64 15 132/73 95 12/07/21 00:30 66 14 120/81 97 12/07/21 00:00 72 19 133/86 97 12/06/21 23:30 79 14 125/87 97 12/06/21 23:00 76 16 133/94 97 12/06/21 22:30 87 13 113/80 96 12/06/21 22:24 104 H 14 98 12/06/21 22:13 127 H 16 128/102 H 96 12/06/21 22:12 97 12/06/21 21:47 36.7 C 132 H 16 131/85 97 Pulse Ox 12/07/21 09:11 12/07/21 07:52 12/07/21 02:36 97 12/07/21 02:25 12/07/21 02:13 12/07/21 01:30 12/07/21 01:00 12/07/21 00:30 12/07/21 00:00 12/06/21 23:30 12/06/21 23:00 12/06/21 22:30 12/06/21 22:24 12/06/21 22:13 12/06/21 22:12 12/06/21 21:47 Laboratory Results Abnormal Lab Results 12/06/21 12/06/21 12/06/21 22:00 22:00 22:00 WBC 8.12 RBC 4.63 Hgb 14.4 Hct 42.1 MCV 90.9 MCH 31.1 MCHC 34.2 RDW Std Deviation 41.8 RDW Coeff of Rachel 12.6 Plt Count 218 MPV 9.9 Immature Gran % (Auto) 0.2 Neut % (Auto) 49.8 Lymph % (Auto) 38.2 [place] % (Auto) 9.7 Eos % (Auto) 1.4 Baso % (Auto) 0.7 Neut # (Auto) 4.04 Lymph # (Auto) 3.10 [place] # (Auto) 0.79 Eos # (Auto) 0.11 Baso # (Auto) 0.06 Immature Gran # (Auto) 0.02 PT 10.6 INR 1.0 APTT 27.5 PTT Ratio 1.0 Sodium 137 Potassium 3.8 Chloride 106 Carbon Dioxide 26 Anion Gap 5 BUN 32 H Creatinine 1.11 Est Cr Clr Drug Dosing 74.0 Est GFR ( Amer) 77.6 Est GFR (Non-Af Amer) 66.9 BUN/Creatinine Ratio 28.8 H Glucose 110 H Calcium 9.0 Magnesium Total Bilirubin 1.1 H AST 33 ALT 28 Alkaline Phosphatase 55 Troponin I High Sens 26.9 H Total Protein 6.4 Albumin 3.9 Globulin 2.5 Albumin/Globulin Ratio 1.6 SARS-CoV-2, RNA, NAAT 12/06/21 12/06/21 12/07/21 22:00 23:12 02:10 WBC RBC Hgb Hct MCV MCH MCHC RDW Std Deviation RDW Coeff of Rachel Plt Count MPV Immature Gran % (Auto) Neut % (Auto) Lymph % (Auto) [place] % (Auto) Eos % (Auto) Baso % (Auto) Neut # (Auto) Lymph # (Auto) [place] # (Auto) Eos # (Auto) Baso # (Auto) Immature Gran # (Auto) PT INR APTT PTT Ratio Sodium Potassium Chloride Carbon Dioxide Anion Gap BUN Creatinine Est Cr Clr Drug Dosing Est GFR ( Amer) Est GFR (Non-Af Amer) BUN/Creatinine Ratio Glucose Calcium Magnesium 2.0 Total Bilirubin AST ALT Alkaline Phosphatase Troponin I High Sens 22.8 H Total Protein Albumin Globulin Albumin/Globulin Ratio SARS-CoV-2, RNA, NAAT NEGATIVE 12/07/21 08:39 WBC 5.32 RBC 4.77 Hgb 14.5 Hct 43.7 MCV 91.6 MCH 30.4 MCHC 33.2 RDW Std Deviation 43.7 RDW Coeff of Rachel 12.9 Plt Count 197 MPV 9.8 Immature Gran % (Auto) Neut % (Auto) Lymph % (Auto) [place] % (Auto) Eos % (Auto) Baso % (Auto) Neut # (Auto) Lymph # (Auto) [place] # (Auto) Eos # (Auto) Baso # (Auto) Immature Gran # (Auto) PT INR APTT PTT Ratio Sodium Potassium Chloride Carbon Dioxide Anion Gap BUN Creatinine Est Cr Clr Drug Dosing Est GFR ( Amer) Est GFR (Non-Af Amer) BUN/Creatinine Ratio Glucose Calcium Magnesium Total Bilirubin AST ALT Alkaline Phosphatase Troponin I High Sens Total Protein Albumin Globulin Albumin/Globulin Ratio SARS-CoV-2, RNA, NAAT Diagnostic Findings Chest x-ray obtained on admission. No acute cardiopulmonary disease. ECG Additional Comments: The patient had 2 EKGs since admission. Initial EKG does suggest an atrial flutter with incomplete right bundle branch block. Second EKG demonstrates atrial fibrillation with controlled ventricular rate. Incomplete right bundle branch block and single T-wave inversion in V6. PG Care Time/CCT Total # of Minutes Spent Total Time Spent with Patient: Total time spent is greater than 50% in coordination of care (as documented) at patient's floor/unit and/or counseling patient: Coding Level of Care Code INT OBSERVATION CARE 71M LVL 3 Diagnoses Atrial fibrillation I48.91 Elevated troponin R77.8
[2021-12-07 09:37] LABS: BUN Creatinine Ratio 27.4 (10-20); Calcium 8.9 mg/dl (8.5-10.1); Chol HDL Ratio 2.9 (0-5); Creatinine Clr Calc Pharmacy 86.5 ml/min; Est GFR (African American) 93.6 ml/min; Est GFR (Non-African American) 80.8 ml/min; Magnesium 1.8 mg/dl (1.7-2.4); Potassium 4.7 mmol/L (3.5-5.1)
--- NOTE | 2021-12-07 10:34 | XCELERA ---
[id number]
[2021-12-07] MEDS ORDERED: RIVAROXABAN 20 MG TAB PO SCH (11:00)
--- NOTE | 2021-12-07 12:22 | Electrocardiogram Report ---
Test Reason : Blood Pressure : / mmHG Vent. Rate : 107 BPM Atrial Rate : 263 BPM P-R Int : 000 ms QRS Dur : 120 ms QT Int : 362 ms P-R-T Axes : 270 -03 084 degrees QTc Int : 483 ms Atrial flutter with variable A-V block Incomplete right bundle branch block Abnormal ECG No previous ECGs available Confirmed by Rolly Becker ([id number]) on 12/07/2021 12:22:20 PM Referred By: REFERRED SELF Confirmed By:Kaleb Becker
--- NOTE | 2021-12-07 12:24 | Electrocardiogram Report ---
Test Reason : Blood Pressure : / mmHG Vent. Rate : 074 BPM Atrial Rate : 178 BPM P-R Int : 000 ms QRS Dur : 100 ms QT Int : 384 ms P-R-T Axes : 000 -41 162 degrees QTc Int : 426 ms Atrial fibrillation Left axis deviation Incomplete right bundle branch block Abnormal ECG When compared with ECG of 06-DEC-2021 21:52, (unconfirmed) Atrial fibrillation has replaced Atrial flutter Confirmed by Rolly Becker ([id number]) on 12/07/2021 12:24:28 PM Referred By: REFERRED SELF Confirmed By:Kaleb Becker
--- NOTE | 2021-12-07 12:54 | Discharge Summary ---
Date of Service December 07, 2021 Admission HPI Per Admitting Provider Patient is a 71 yo male presenting to the ED today with an acute onset of tachycardia/palpitations. Patient is very active at baseline; he golfs 18 holes daily, walking the course, and rides his bicycle (trailing the clubs) about 3 miles roundtrip between the house and course. This afternoon, patient was on hole 17 when he had an acute onset of tachycardia/palpitations. He thought that it was associated with dehydration so he drank some water. Patient was able to complete the game. He was also able to complete another 9-hole game with his later in the evening. Afterwards, symptoms persisted so he presented to the ED for evaluation. Patient denies hx of similar episodes. He denies CP, SOB, YOUNG, lightheadedness, dizziness, or any other symptoms. Patient states that he has been at his baseline health w/o recent illness. He has had normal po intake and no recent decreased appetite. Principal Diagnosis atrial fibrillation Discharge Exam GENERAL: No acute distress. WD/WN. Vital signs reviewed as above. EYES: EOMI. Anicteric sclerae. HENT: Moist mucous membranes. RESPIRATORY: Clear to auscultation bilaterally. No wheezing, rales, or rhonchi. CARDIOVASCULAR: Regular rate. Irregularly irregular rhythm. No murmurs. No JVD. ABDOMEN: Soft, non-tender and non-distended. Normal bowel sounds. SKIN: Warm, dry. NEUROLOGIC: A/O x3. Normal speech. No focal neurological deficits. PSYCHIATRIC: Cooperative. Appropriate mood and affect. Discharge Data Allergies Allergy/AdvReac Type Severity Reaction Status Date / Time No Known Drug Allergies Allergy Unknown Verified 12/06/21 22:41 Consultations 12/07/21 00:22 ED Decision to Admit Stat 12/07/21 00:23 Consult Cardiology Routine Ordered Studies Laboratory Results WBC 5.32 K/ul (4.8-10.8) 12/07/21 08:39 RBC 4.77 M/uL (4.63-6.08) 12/07/21 08:39 Hgb 14.5 g/dl (14.0-18.0) 12/07/21 08:39 Hct 43.7 % (40.1-51.0) 12/07/21 08:39 MCV 91.6 fL (80.0-100.0) 12/07/21 08:39 MCH 30.4 pg (25.0-34.0) 12/07/21 08:39 MCHC 33.2 g/dL (32.0-36.0) 12/07/21 08:39 RDW Std Deviation 43.7 fL (36.4-46.3) 12/07/21 08:39 RDW Coeff of Rachel 12.9 % (11.5-14.5) 12/07/21 08:39 Plt Count 197 K/uL (130-400) 12/07/21 08:39 MPV 9.8 fL (9.4-12.4) 12/07/21 08:39 Immature Gran % (Auto) 0.2 % 12/06/21 22:00 Neut % (Auto) 49.8 % 12/06/21 22:00 Lymph % (Auto) 38.2 % 12/06/21 22:00 [place] % (Auto) 9.7 % 12/06/21 22:00 Eos % (Auto) 1.4 % 12/06/21 22:00 Baso % (Auto) 0.7 % 12/06/21 22:00 Neut # (Auto) 4.04 K/uL (1.4-6.5) 12/06/21 22:00 Lymph # (Auto) 3.10 K/uL (1.2-3.4) 12/06/21 22:00 [place] # (Auto) 0.79 K/uL (0.24-0.82) 12/06/21 22:00 Eos # (Auto) 0.11 K/uL (0-0.50) 12/06/21 22:00 Baso # (Auto) 0.06 K/uL (0-0.2) 12/06/21 22:00 Immature Gran # (Auto) 0.02 K/uL (0.00-0.02) 12/06/21 22:00 PT 10.6 Seconds (9.0-12.0) 12/06/21 22:00 INR 1.0 (0.9-1.1) 12/06/21 22:00 APTT 27.5 Seconds (21.0-31.0) 12/06/21 22:00 PTT Ratio 1.0 12/06/21 22:00 Sodium 140 mmol/L (136-145) 12/07/21 08:39 Potassium 4.7 mmol/L (3.5-5.1) D 12/07/21 08:39 Chloride 107 mmol/L (98-107) 12/07/21 08:39 Carbon Dioxide 29 mmol/L (21-32) 12/07/21 08:39 Anion Gap 4 (3-11) 12/07/21 08:39 BUN 26 mg/dl (6-23) H 12/07/21 08:39 Creatinine 0.95 mg/dl (0.6-1.4) 12/07/21 08:39 Est Cr Clr Drug Dosing 86.5 ml/min 12/07/21 08:39 Est GFR ( Amer) 93.6 ml/min 12/07/21 08:39 Est GFR (Non-Af Amer) 80.8 ml/min 12/07/21 08:39 BUN/Creatinine Ratio 27.4 (10-20) H 12/07/21 08:39 Glucose 97 mg/dl (70-99(Fasting)) 12/07/21 08:39 Calcium 8.9 mg/dl (8.5-10.1) 12/07/21 08:39 Magnesium 1.8 mg/dl (1.7-2.4) 12/07/21 08:39 Total Bilirubin 1.1 mg/dl (0.2-1.0) H 12/06/21 22:00 AST 33 U/L (13-39) 12/06/21 22:00 ALT 28 U/L (7-52) 12/06/21 22:00 Alkaline Phosphatase 55 U/L (34-104) 12/06/21 22:00 Troponin I High Sens 13.9 pg/ml (0-20) D 12/07/21 08:39 Total Protein 6.4 gm/dl (6.0-8.3) 12/06/21 22:00 Albumin 3.9 gm/dl (3.4-5.0) 12/06/21 22:00 Globulin 2.5 gm/dl (2.5-4.0) 12/06/21 22:00 Albumin/Globulin Ratio 1.6 (0.9-2) 12/06/21 22:00 Triglycerides 53 mg/dl (0-150) 12/07/21 08:39 Cholesterol 174 mg/dl (0-200) 12/07/21 08:39 LDL Cholesterol, Calc 102 mg/dl 12/07/21 08:39 VLDL Cholesterol, Calc 11 mg/dl (0-30) 12/07/21 08:39 HDL Cholesterol 61 mg/dl 12/07/21 08:39 Cholesterol/HDL Ratio 2.9 (0-5) 12/07/21 08:39 SARS-CoV-2, RNA, NAAT NEGATIVE (NEGATIVE) 12/06/21 23:12 Impressions Chest X-Ray 12/06/21 22:06 XR chest 1V portable CLINICAL HISTORY: Chest Pain TECHNIQUE: Single frontal radiograph of the chest was obtained. Comparison: None available at the time of this dictation. FINDINGS: No lines and tubes are seen. The cardiomediastinal silhouette is normal. The lungs are clear. No evidence of pleural effusion or pneumothorax. IMPRESSION: No acute chest disease. ACT 112: Negative or not required by law. Electronically signed by: Cameron Hyman M.D. 12/06/2021 10:44 PM Hospital Course (1) Atrial fibrillation: Mr. Krause is a 71 yo male with PMHx of OA and HLD who presented to the ER with acute onset of tachycardia/palpitations, admitted for new onset atrial flutter. Atrial flutter changed to atrial fibrillation during hospital stay. Atrial flutter - CXR (12/06): no acute processes - EKG (12/06): atrial flutter - repeat EKG (12/07): atrial fibrillation - TTEcho: EF 50-55%, mild LVH, no significant valvular disease seen - Trops peaked 26.9 - Cardiology consult appreciated - Okay for discharge. Will follow up with cardiology this upcoming thursday for repeat EKG to assess rhythm. If still in atrial fibrillation will consider cardioversion. Low chadsvasc score 1. However, recommended anticoagulation for stroke prevention especially with possible cardioversion. Will start xarelto 20mg daily. No need for rate control at this time, HR stable. Hyperlipidemia - Hx of HLD, diet controlled - Lipid panel unremarkable (2) Hyperlipidemia: Total Time Total Time Spent Total Time Spent (In Minutes): 30 Discharge Plan Discharge Items Patient Disposition: Home - Self-Care Reason For Visit: A FLUTTER Discharge Diagnosis: Atrial Fibrillation Activity: Per Instructions section Non-emergency contact: Primary Care Provider and Hand I Thermal Cutter Call non-emergency contact if: you have any medication questions and your symptoms worsen Follow-up/Referrals: Jax Najera MD [Primary Care Provider] - Rolly Becker MD [Physician] - Diet: Regular Addtl Attending Provider Instructions: You were admitted to the hospital for experiencing heart palpitations [place] the [place]. Initial EKG showed your heart rhythm to be in atrial flutter however this morning it was read discovered to be an atrial fibrillation which can be a very common diagnosis for many people. The mainstay of treatment for atrial fibrillation is rate control and anticoagulation. Your rate is within normal range not on any medications at the moment so we will just continue to monitor this for now. Although you are at a low risk for stroke given your current health status, it is still recommended that you begin anticoagulation for stroke prevention especially since we may undergo an electric cardioversion if the current atrial fibrillation rhythm does not convert spontaneously on its own. We will begin you on Xarelto 20 mg daily with the first dose being given today in the hospital. 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 Until then, avoid strenuous physical activity. New Medications: Xarelto 20mg daily- dose given in hospital, begin home regimen on 12/08/21; script sent to [facility] Mukul Mccann Pending Studies at Discharge: No Stand-Alone Forms: My [facility] [employer], Smoking Cessation Medications and DC Order Prescriptions: New Xarelto 20 mg Tablet 20 mg PO DAILY Qty: 30 RF: 0 Continued calcium carbonate 500 mg calcium (1,250 mg) tablet 500 mg PO DAILY RF: 0 cholecalciferol (vitamin D3) 2,000 unit tablet 2,000 units PO DAILY Qty: 90 RF: 0 magnesium oxide 400 mg (241.3 mg magnesium) tablet 400 mg PO DAILY Qty: 30 RF: 0 potassium gluconate 595 mg (99 mg) tablet 595 mg PO DAILY RF: 0 Macular Health Formula 5-1-7.5 mg Capsule 1 cap PO DAILY RF: 0 Discharge Orders: Discharge Order (Routine); Ordered 12/07/21 Ordered By: Aubrey Cueva/Other Patient Handouts: AFib Admission Data Admit Date/Time: 12/06/21 23:59 Attending Provider: Lj Jean Admit Provider: Mary Kate Chan Primary Care Provider: Jax Najera Other Providers: Rolly Becker ; Lj Jean Other Interventions: Discharge Summary Assessment (RN) Last Done: 12/07/21 12:17 Supervising Physician Co-Signing Physician Notes I supervised Aubrey Fisher DO on the care of this patient. I interviewed and examined the patient independently of him. The plan is as written in his note except for any following changes/exceptions: None 71yo M w/ hx of HLD who presented with atrial flutter/fib. Doing well. HR is controlled on its own with any AV la agent. Patient is amenable to anticoagulation in the lead-up to a possible cardioversion next week with cardiology. Otherwise feels well. Echo normal. Cleared for discharge by cardiology as well. Resident Activity Tracking Resident Involvement: Resident Care Provided Care Provided: Adult Hospital Medicine
--- NOTE | 2021-12-07 13:41 | Billing Data ---
Date of Service December 07, 2021 Coding Level of Care Code D/C DAY MANAGEMENT >30 MINS
--- NOTE | 2021-12-08 00:40 | Billing Data ---
Date of Service December 08, 2021 Coding Level of Care Code 45261 Initial Inpt Care Lvl 2
== END 2021-12-07 12:57 | disposition home or self-care (01) | DRG 310 ==
LOC: ED 21:43 → 2S 23:59 → SUATTDRO 23:59 → 2S 12-07 01:53